=== PATIENT | male | born 1990 ===

== ENCOUNTER 2019-01-13 12:17 | Emergency (ER) | payer MEDICAID ==
[2019-01-13 12:26] VITALS: BP 120/80; PULSE 84; RESP 18; TEMP 97.8; O2SAT 97
--- NOTE | 2019-01-13 12:54 | C.PDOC ---
History Of Present Illness 28 y/o male pt presents to the ER c/o left elbow and right hip painful abscess with right medial calf itchy rash patch for x1 week. Pt reports it started as tiny red bumps that was itchy and progressively grew bigger. Pt notes he attempted to squeeze the pus out and both abscesses are currently actively draining. Mom reports she gave pt an unknown abx which brought minor relief. Pt notes he had a fever x2 days ago but it has resolved. Time Seen by Provider: 01/13/19 12:29 Chief Complaint (Nursing): Abnormal Skin Integrity History Per: Patient History/Exam Limitations: no limitations Onset/Duration Of Symptoms: Days (x7) Current Symptoms Are (Timing): Still Present Location Of Injury: Right: Hip, Leg, Left: Elbow Quality Of Symptoms: Painful, Itching, Swollen Past Medical History Reviewed: Historical Data, Nursing Documentation, Vital Signs Vital Signs: Last Vital Signs Temp 97.8 F 01/13/19 12:21 Pulse 84 01/13/19 12:21 Resp 18 01/13/19 12:21 BP 120/80 01/13/19 12:21 Pulse Ox 97 01/13/19 12:21 - Medical History PMH: Depression Family History: States: No Known Family Hx - Social History Hx Alcohol Use: No Hx Substance Use: No - Immunization History Hx Tetanus Toxoid Vaccination: No Hx Influenza Vaccination: No Hx Pneumococcal Vaccination: No Review Of Systems Except As Marked, All Systems Reviewed And Found Negative. Constitutional: Positive for: Fever (resolved ) Skin: Positive for: Rash (itchy patch on right medical calf), Other (left elbow, right hip painful abscess; actively draining) Physical Exam - Physical Exam Appears: Non-toxic, No Acute Distress Skin: Warm, Dry, Rash (itchy patch on medial right calf ), Other (left elbow and right hip 3x4 cm abscess; actively draining; +painful; no induration, no fluctuance, open wound, well-healing ) Head: Normacephalic Eye(s): bilateral: Normal Inspection Oral Mucosa: Moist Throat: Normal, No Erythema, No Exudate Cardiovascular: Rhythm Regular Respiratory: Normal Breath Sounds Neurological/Psych: Oriented x3, Normal Speech ED Course And Treatment O2 Sat by Pulse Oximetry: 97 (RA) Pulse Ox Interpretation: Normal Medical Decision Making Medical Decision Making: plans: -- clindamycin Pt was instructed to put warm compress on abscess and to cover the wound Disposition - Disposition Referrals: [facility] at [facility] [place] [Outside] [facility] at [facility] [Outside] [facility] at [place] [Outside] Disposition: HOME/ ROUTINE Disposition Time: 13:07 Condition: GOOD Additional Instructions: Apply warm compress three times a day and take clindamycin as directed. Follow up with your pcp or medicine clinic in a few days. Prescriptions: Clindamycin [Cleocin] 300 mg PO QID 10 Days cap Mupirocin 2% Ointment [Bactroban Ointment] 15 gm EXT Q12 #1 tube Instructions: Skin Abscess Forms: DGTS (Kyrgyz) - Clinical Impression Clinical Impression: Abscess - Scribe Statement The provider has reviewed the documentation as recorded by the Scribe Tiffany Le Provider Attestation: All medical record entries made by the Scribe were at my direction and personally dictated by me. I have reviewed the chart and agree that the record accurately reflects my personal performance of the history, physical exam, medical decision making, and the department course for this patient. I have also personally directed, reviewed, and agree with the discharge instructions and disposition.
== END 2019-01-13 13:07 | disposition home or self-care (01) ==
LOC: C.ER 12:17
DX: L02.414 Cutaneous abscess of left upper limb (principal); L02.415 Cutaneous abscess of right lower limb